=== PATIENT | male | born 2000 | race Hispanic/Latino ===

== ENCOUNTER 2023-02-10 18:45 | Emergency (ER) | payer OTHER ==
[~2023-02-10] VITALS: Ht 170.2 cm; Wt 82.6 kg
[2023-02-10 18:57] VITALS: BP 142/88; PULSE 110; RESP 18
== END 2023-02-10 20:41 | disposition left against medical advice (07) ==
LOC: EDH 18:45
DX: M79.644 Pain in right finger(s) (principal); Z20.822 Contact with and (suspected) exposure to COVID-19
CPT/HCPCS: 99281